=== PATIENT | female | born 1980 | race Caucasian/White ===

== ENCOUNTER 2020-10-25 06:20 | Emergency (ER) | payer SELFPAY ==
--- NOTE | 2020-10-25 06:25 | XR_ITS ---
WS: [id number] Left shoulder, 2 views, 10/25/2020 Clinical Data: L shoulder pain Comparison: None. Findings: No fractures or dislocations are seen. The AC joint is normal. The adjacent left clavicle, left scapu la and ribs are normal. The soft tissues are unremarkable. XR/XR shoulder LT min 2V* [id number] Impression: Negative left shoulder.
[2020-10-25 06:26] VITALS: BP 167/92; PULSE 82; RESP 24; TEMP 36.7; O2SAT 98; BMI 36.6
--- NOTE | 2020-10-25 06:36 | CTR_ITS ---
PROCEDURE INFORMATION: Exam: CT Cervical Spine Without Contrast Exam date and time: 10/25/2020 6:42 AM Age: 40 years old Clinical indication: Neck pain; Additional info: Pain/l arm radiculopathy TECHNIQUE: Imaging protocol: Computed tomography images of the cervical spine without contrast. Radiation optimization: All CT scans at this facility use at least one of these dose optimization techniques: automated exposure control; mA and/or kV adjustment per patient size (includes targeted exams where dose is matched to clinical indication); or iterative reconstruction. COMPARISON: No relevant prior studies available. RADIATION DOSE METRICS: Total DLP (mGy-cm): 869.01 FINDINGS: Bones/joints: On axial CT images, no definite acute fracture is visible. Sagittal and coronal reconstructions show no acute fracture or subluxation. Mild degenerative disc changes and facet joint arthritis at several levels. The most prominent disc space narrowing is seen at C6-C7. Discs/Spinal canal/Neural foramina: No definite/significant disc herniation by CT, MRI could be more sensitive if clinically indicated. Thyroid: Small nodule or cyst is suspected in the upper lobe of both lobes of the thyroid gland, measuring up to 8 mm on the left, and 6 mm right. Lungs: No significant acute finding in the upper lungs. CT/CT cervical spin wo con* [id number] IMPRESSION: 1. No definite acute fracture or subluxation by CT. 2. Small thyroid nodules or cysts, see above. 3. Other findings discussed above. COMMENTS: Consistent with the [employer]'s Incidental Findings Committee white paper (J Am Marie Radiol 2015): In patients aged 35 years and older with an incidental thyroid nodule equal to or greater than 1.[address], MRI or extrathyroidal US, further evaluation with dedicated thyroid US is recommended for patients with normal life expectancy and without comorbidities. For smaller nodules without suspicious features, no further evaluation or follow up is recommended. Radiation Dose CTDIVOL = (mGy): DLP = 869.01 (mGy-cm)
--- NOTE | 2020-10-25 06:39 | W.ED.EXTPRO ---
HPI - Extremity Problem General: Chief complaint: Extremity Problem,Nontraumatic Stated complaint: L SHOULDER PAIN Time Seen by Provider: 10/25/20 06:25 History of Present Illness: HPI Narrative: 40-year-old female presents emergency room complaining of left shoulder pain. She denies any trauma she has been going on for a month she has had 2 ER visits in [facility] is a second visit she received an injection she indicates in the area of the rhomboid muscle. She describes the pain is radiating to her shoulder all the way down into her hand. It is difficult to sleep at night. She denies any previous history of neck or shoulder trauma. MD Complaint: extremity pain Onset (ago): month(s) (1) Pain Consistency: intermittent Location: left and upper extremity Quality: sharp Radiation: distal Relieving factors: immobilization Exacerbating factors: other (Movement) Associated symptoms: Deny arthralgias, chest pain, fever(s), myalgias, rash or short of breath Review of Systems Const: Denies: fever(s) ENMT: Denies: throat pain, ear or mastoid pain, nasal discharge or nasal congestion Card: Denies: chest pain Resp: Denies: dyspnea, productive cough or non-productive cough GI: Denies: abdominal pain, nausea, vomiting, coffee ground emesis, diarrhea, constipation or bloating : Denies: flank pain, difficulty voiding, dysuria, urinary frequency or urinary urgency [facility] Female Reproductive History: Date of last menstrual period: 10/06/20 Physical Exam Const: COMMON NORMALS: no acute distress GENERAL APPEARANCE: cooperative and comfortable ORIENTATION/CONSCIOUSNESS: Yes awake, Yes oriented to person, Yes oriented to place and Yes oriented to time HENMT: COMMON NORMALS: normocephalic, atraumatic and hearing grossly normal bilaterally HEAD & SCALP: normocephalic and atraumatic Neck/C-Spine: COMMON NORMALS: no JVD Resp: COMMON NORMALS: normal respiratory effort, No retractions, No use of accessory muscles and clear to auscultation bilaterally AUSCULTATION: clear to auscultation bilaterally Cardio: COMMON NORMALS: no JVD, regular rate, regular rhythm and No murmurs present (Cardio) RATE: regular rate RHYTHM: regular rhythm GI: COMMON NORMALS: Soft to palpation and No hepatosplenomegaly present AUSCULTATION: Yes normoactive bowel sounds PALPATION: Yes Soft to palpation, No Tenderness to palpation present (GI), No Guarding due to palpation present (GI) and Yes No hepatosplenomegaly present Extremity: NARRATIVE EXTREMITY EXAM: Peripheral pulses at radial and ulnar on the left are normal. Sensation to sharp touch normal research associate strength equal range of motion of the shoulder elbow and wrist are all normal. Patient has no impingement sign no pain with palpation over the biceps tendon and bicipital groove. Neuro: SENSORIUM/ORIENTATION: Yes oriented to person, Yes oriented to place and Yes oriented to time Skin: COMMON NORMALS: no rashes or lesions noted GENERAL SKIN EXAM: no rashes or lesions noted Course Vital Signs: Vital signs: Vital Signs Temperature 98.1 F 10/25/20 06:26 Pulse Rate 61 10/25/20 07:46 Respiratory Rate 20 H 10/25/20 07:46 Blood Pressure 141/83 10/25/20 07:46 Pulse Oximetry 99 10/25/20 07:46 MDM - Extremity (Nontraumatic) MDM Narrative: Medical decision making narrative: Reviewed CT with the patient. I suspect she is going to need more advanced imaging. She does not have a PCP will try to get her set up with 1 to our case management. Medications as given below. Recommend she limit lifting less than 10 pounds not work above the level of her shoulder. Discharge Plan Discharge Patient Disposition: Home Clinical Impression: Cervical radiculopathy Condition: Stable Prescriptions: New hydrocodone-acetaminophen 5-325 mg tablet 1 tab PO Q6H PRN (Reason: pain) Qty: 10 RF: 0 diclofenac sodium 75 mg tablet,delayed release (DR/EC) 75 mg PO Q12H PRN (Reason: pain) Qty: 20 RF: 0 Medrol (Joseph) 4 mg tablets,dose pack See Rx Instructions .ROUTE .COMPLEX Qty: 21 RF: 0 Discharge Orders: Discharge ED (Routine); Ordered 10/25/20 Ordered By: Arya Stuart Patient Instructions: Opioid Safety Activity Restrictions/Additional Instructions: Discharge home follow-up with her primary caregiver may require more advanced imaging. Medications as above no lifting greater than 10 pounds do not work above level of the shoulders. Coding Level of Care Code ED Vehicle Inspector for Chg Fwd Exam Detailed
[2020-10-25 07:09] VITALS: RESP 20
[2020-10-25] MEDS: morphine 4 mg/mL SDV 1 mL IVP (07:09)
[2020-10-25] MEDS: orphenadrine 30 mg/mL Inj 2 mL 60 MG IVP (07:09)
[2020-10-25] MEDS: dexamethasone 10 mg/mL INJ IVP (07:10)
[2020-10-25 07:14] VITALS: BP 153/99; PULSE 66; RESP 20; O2SAT 99
[2020-10-25 07:46] VITALS: BP 141/83; PULSE 61; RESP 20; O2SAT 99
== END 2020-10-25 07:45 | disposition home or self-care (01) ==
PROVIDERS: Emergency Provider Family Medicine
DX: M54.12 Radiculopathy, cervical region (principal)
CPT/HCPCS: 72125; 73030; 96374; 96375; 99283; J1100; J2270; J2360

== ENCOUNTER 2020-10-27 06:07 | Emergency (ER) | payer SELFPAY ==
[2020-10-27 06:11] VITALS: BP 173/119; PULSE 81; RESP 24; TEMP 36.8; O2SAT 98; BMI 39.9
[2020-10-27] MEDS: haloperidol inj 5 mg/mL INJ 1 mL IM (06:19)
[2020-10-27] MEDS: diphenhydrAMINE 50 mg/mL SDV 1mL IVP (06:21)
--- NOTE | 2020-10-27 06:23 | W.ED.NECK ---
HPI - Neck Pain/Injury General: Chief Complaint: Neck Pain/Injury Stated Complaint: NECK AND SHOULDER PAIN Time Seen by Provider: 10/27/20 06:11 Source: patient and EMS Mode of arrival: EMS Limitations: no limitations History of Present Illness: HPI Narrative: 40-year-old female states she been having severe neck pain over the last 3 to 4 weeks. Patient was seen here 3 days ago and had a CT scan that showed no acute findings. She been taking hydrocodone states her pain got much worse this morning. States it is worse with movement or palpation. It starts in her neck and radiates down her left arm. MD complaint: neck pain Associated symptoms: Denies headache(s) or nausea Review of Systems Const: Denies: fever(s), chills, body aches or change in appetite Eyes: Denies: blurry vision or eye discomfort ENMT: Denies: throat pain or dental pain Card: Denies: chest pain Resp: Denies: dyspnea GI: Denies: abdominal pain, nausea, vomiting or diarrhea : Denies: dysuria Musc: Reports: neck pain Skin/Breast: Denies: rash Neuro: Denies: headache(s) Psych: Denies: depression Nitin/Lymph: Denies: easy bruising All/Imm: Denies: urticaria COUNTS INCLUDE 234 BEDS AT THE [facility] ED Female Reproductive History: Date of last menstrual period: 10/06/20 Physical Exam Const: COMMON NORMALS: no acute distress, patient oriented x3 and healthy appearing HENMT: COMMON NORMALS: normocephalic and atraumatic HEAD & SCALP: normocephalic and atraumatic Eye: COMMON NORMALS: Equal, round and reactive pupils present and EOMs intact bilaterally PUPIL: Yes Equal, round and reactive pupils present Neck/C-Spine: COMMON NORMALS: full ROM and supple OTHER: Tenderness over left neck and slight midline tenderness. Patient has sensation and pulses intact to bilateral upper extremities. Chest: COMMONS NORMALS: normal inspection of the chest and normal palpation of entire chest wall Resp: COMMON NORMALS: normal respiratory effort, No retractions, No use of accessory muscles and clear to auscultation bilaterally AUSCULTATION: clear to auscultation bilaterally Cardio: COMMON NORMALS: regular rate, regular rhythm and No murmurs present (Cardio) RATE: regular rate RHYTHM: regular rhythm GI: COMMON NORMALS: Normal to inspection, nondistended, normoactive bowel sounds present, Soft to palpation, non-tender and no masses PALPATION: Yes Soft to palpation Extremity: COMMON NORMALS: normal to inspection and full ROM Neuro: COMMON NORMALS: patient oriented x3, moves all extremities and no focal motor deficits Psych: COMMON NORMALS: mental status grossly normal, Normal thought process present and cooperative THOUGHT PROCESS: Normal thought process present Skin: COMMON NORMALS: no rashes or lesions noted and no wounds GENERAL SKIN EXAM: no rashes or lesions noted Course Vital Signs: Vital signs: Vital Signs Temperature 97.8 F 10/27/20 06:56 Pulse Rate 54 L 10/27/20 08:15 Respiratory Rate 18 10/27/20 08:15 Blood Pressure 125/78 10/27/20 08:15 Pulse Oximetry 100 10/27/20 08:15 MDM - Neck Pain/Injury MDM Narrative: Medical decision making narrative: Maggie presents with neck pain is likely radicular in nature. She is to continue the gabapentin. She has no signs of any acute cord compression no signs of epidural abscess. We will get her follow-up with spine surgery and she is return if worsening. Lab Data: Labs: Lab Results 10/27/20 10/27/20 10/27/20 Range/Units 06:24 06:24 06:24 WBC 13.2 H (4.0-10.0) 10^3/ uL RBC 4.66 (4.1-5.3) 10^6/u L Hgb 12.2 (11.5-15.3) g/dL Hct 39.7 (37.0-47.0) % MCV 85.2 (81-99) fL MCH 26.2 L (28.0-34.0) pg MCHC 30.7 (30.0-36.0) g/dL RDW 16.2 H (12.1-15.1) % Plt Count 323 (130-400) 10^3/c mm MPV 10.9 H (7.4-10.4) fL Neut % (Auto) 71.0 % Lymph % (Auto) 19.3 % Crenshaw % (Auto) 6.8 % Eos % (Auto) 1.6 % Baso % (Auto) 0.9 % Neut # (Auto) 9.35 H (1.8-7.7) 10^3/u L Lymph # (Auto) 2.5 (0.8-4.8) 10^3/u L Crenshaw # (Auto) 0.9 (0.2-0.9) 10^3/u L Eos # (Auto) 0.2 (0.0-0.8) 10^3/u L Baso # (Auto) 0.1 (0.0-0.1) 10^3/u L Nucleated RBC % (a uto) 0 % Nucleated RBCs # 0.0 /100WBC Sodium 141 (136-145) mmol/L Potassium 4.0 (3.5-5.1) mmol/L Chloride 109 H (98-107) mmol/L Carbon Dioxide 21 L (22-29) mmol/L Anion Gap 15.0 (5-19) BUN 18 (6-20) mg/dL Creatinine 0.6 (0.5-0.9) mg/dL GFR Calculation 111.9 (90-130) mL/min Glucose 111 (65-115) mg/dL Calculated Osmolal ity 295 (285-295) mOsm/k g Calcium 8.3 L (8.5-10.5) mg/dL C-Reactive Protein 2.2 (0.0-4.9) mg/L Discharge Plan Discharge Patient Disposition: Home Clinical Impression: Cervical radiculopathy Condition: Stable Prescriptions: New Percocet 5-325 mg tablet 1 tab PO Q8H PRN (Reason: pain) Qty: 14 RF: 0 Robaxin-750 750 mg tablet 750 mg PO Q6H Qty: 30 RF: 0 No Action hydrocodone-acetaminophen 5-325 mg tablet 1 tab PO Q6H PRN (Reason: pain) Qty: 10 RF: 0 diclofenac sodium 75 mg tablet,delayed release (DR/EC) 75 mg PO Q12H PRN (Reason: pain) Qty: 20 RF: 0 Medrol (Joseph) 4 mg tablets,dose pack See Rx Instructions .ROUTE .COMPLEX Qty: 21 RF: 0 Discharge Orders: Discharge ED (Routine); Ordered 10/27/20 Ordered By: Narciso Elizabeth Referrals: Js Tillman DO [Physician] - 1-3 days Discharge Diet: Advance as tolerated Discharge Activity: Resume usual activity Patient Instructions: Cervical Radiculopathy (ED) Coding Level of Care Code ED Quality Assurance Supervisor for Chg Fwd Exam Comprehensive
[2020-10-27 06:27] VITALS: BP 122/86; PULSE 68; RESP 18; O2SAT 98
[2020-10-27 06:30] LABS: Basophils # 0.1 10^3/uL (0.0-0.1); Basophils % 0.9 %; Eosinophils # 0.2 10^3/uL (0.0-0.8); Eosinophils % 1.6 %; Hematocrit 39.7 % (37.0-47.0); Hemoglobin 12.2 g/dL (11.5-15.3); Lymphocytes # 2.5 10^3/uL (0.8-4.8); Lymphocytes % 19.3 %; Mean Corpuscular HGB Conc 30.7 g/dL (30.0-36.0); Mean Corpuscular Hemoglobin 26.2 pg (28.0-34.0); Mean Corpuscular Volume 85.2 fL (81-99); Mean Platelet Volume 10.9 fL (7.4-10.4); Monocytes # 0.9 10^3/uL (0.2-0.9); Monocytes % 6.8 %; Neutrophils # 9.35 10^3/uL (1.8-7.7); Nucleated Red Blood Cells % 0 %; Platelet Count 323 10^3/cmm (130-400); Red Blood Count 4.66 10^6/uL (4.1-5.3); Red Cell Distribution Width 16.2 % (12.1-15.1); White Blood Count 13.2 10^3/uL (4.0-10.0)
[2020-10-27 06:53] LABS: Blood Urea Nitrogen 18 mg/dL (6-20); Calcium 8.3 mg/dL (8.5-10.5); Carbon Dioxide 21 mmol/L (22-29); Chloride 109 mmol/L (98-107); Creatinine Clr Calc Pharmacy 156.0295; Glomerular Filtration Rate 111.9 mL/min (90-130); Glucose 111 mg/dL (65-115); Osmolality Calculated 295 mOsm/kg (285-295); Sodium 141 mmol/L (136-145)
[2020-10-27 06:54] LABS: C Reactive Protein 2.2 mg/L (0.0-4.9)
[2020-10-27 06:56] VITALS: BP 145/91; PULSE 78; RESP 18; TEMP 36.6; O2SAT 99
--- NOTE | 2020-10-27 06:57 | PC.NURSE ---
Received report assumed care. Pt laying on right side, restless in bed. C/O of left shoulder, down left arm and neck pain. States the combination of Fentanyl, Benadryl and Haldo eased the pain. Pt seen recently for the same problem. Does not have a PCP. Informed Dr Elizabeth.
--- NOTE | 2020-10-27 07:20 | PC.NURSE ---
Pt gowned , all garments and belongs removed. Sitter in doorway.
[2020-10-27 08:15] VITALS: BP 125/78; PULSE 54; RESP 18; O2SAT 100
--- NOTE | 2020-10-28 08:58 | DCPLANNER ---
liquor establishment manager had message to schedule a follow up appointment for patient with ortho. liquor establishment manager called the ortho clinic, spoke with Yakelin, gave clinic patients information. liquor establishment manager was told that patients information would be printed and reviewed. Clinic will call patient with appointment information.
--- NOTE | 2020-10-29 07:51 | DCPLANNER ---
Patient has a follow up appointment scheduled for October at 3:[address] Tillman at [facility]. Clinic will call patient with appointment information.
--- NOTE | 2020-11-13 15:02 | DCPLANNER ---
Patient had a follow up appointment scheduled for 10.24.[address] Tillman at [facility] - patient did attend appointment.
== END 2020-10-27 08:15 | disposition home or self-care (01) ==
PROVIDERS: Emergency Provider Emergency Medicine
DX: M54.12 Radiculopathy, cervical region (principal)
CPT/HCPCS: 80048; 85025; 86140; 96372; 96374; 99283; J1200; J1630

== ENCOUNTER 2020-10-31 02:22 | Emergency (ER) | payer SELFPAY ==
[2020-10-31 02:25] VITALS: BP 142/94; PULSE 81; RESP 17; TEMP 36.6; O2SAT 99; BMI 39.9
[2020-10-31 02:29] VITALS: BP 142/94; PULSE 74; RESP 20; O2SAT 99
--- NOTE | 2020-10-31 02:29 | MRR_ITS ---
PROCEDURE INFORMATION: Exam: MR Cervical Spine Without Contrast Exam date and time: 10/31/2020 3:00 AM Age: 40 years old Clinical indication: Neck pain TECHNIQUE: Imaging protocol: Multiplanar magnetic resonance images of the cervical spine without contrast. COMPARISON: No relevant prior studies available. FINDINGS: Vertebrae: There is normal vertebral body alignment. There are normal vertebral body heights. Spinal cord: Cervical cord signal is normal. C1-C2: Craniocervical articulation is normal. C2-C3: There is mild disc space narrowing at C2-C3. C3-C4: No significant disc disease. No significant spinal stenosis. C4-C5: Mild disc space narrowing at C4-C5. Small broad-based disc protrusion at C4-C5 resulting in mild-moderate canal stenosis. No foraminal stenosis. C5-C6: Mild disc space narrowing at C5-C6. C6-C7: Moderate disc space narrowing at C6-C7. Disc extrusion at C6-C7 resulting in moderate to severe canal stenosis. Mild left neural foraminal stenosis. C7-T1: No significant disc disease. No significant spinal stenosis. Soft tissues: Atlantodental interval and prevertebral soft tissues are normal. Vertebral arteries: Expected flow voids in the vertebral arteries. Other findings: Visualized portions of the brain are normal. MR/MR cervical spin wo con* [id number] IMPRESSION: Mild-moderate multilevel degenerative disc and joint disease which is most pronounced at C6-C7 with a large disc extrusion resulting in moderate to severe canal stenosis and mild left neural foraminal narrowing.
--- NOTE | 2020-10-31 02:29 | MRR_ITS ---
PROCEDURE INFORMATION: Exam: MR Lumbar Spine Without Contrast Exam date and time: 10/31/2020 3:00 AM Age: 40 years old Clinical indication: Low back pain TECHNIQUE: Imaging protocol: Multiplanar magnetic resonance images of the lumbar spine without intravenous contrast. COMPARISON: No relevant prior studies available. FINDINGS: Vertebrae: There are 5 lumbar type vertebral bodies. There is normal vertebral body alignment. There are normal vertebral body heights. Spinal cord: Conus medullaris terminates at L1. L1-L2: No significant disc disease. No significant spinal canal stenosis. No neural foraminal stenosis. L2-L3: No significant disc disease. No significant spinal canal stenosis. No neural foraminal stenosis. L3-L4: Small broad-based disc protrusion at L3-L4 results in mild canal stenosis when combined with facet joint hypertrophy. There is mild left neural foraminal stenosis at L3-L4. L4-L5: At L4-L5 there is mild canal stenosis secondary to broad-based disc protrusion and facet hypertrophy. There is mild bilateral foraminal stenosis at L4-L5. L5-S1: No significant disc disease. No significant spinal canal stenosis. No neural foraminal stenosis. Other bones/joints: There is normal bone marrow signal. No fracture. Soft tissues: The paravertebral soft tissues are normal. MR/MR lumbar spine wo con* [id number] IMPRESSION: Mild degenerative disc and joint disease. No fracture.
--- NOTE | 2020-10-31 02:29 | MRR_ITS ---
PROCEDURE INFORMATION: Exam: MR Thoracic Spine Without Contrast Exam date and time: 10/31/2020 3:47 AM Age: 40 years old Clinical indication: Pain in thoracic spine TECHNIQUE: Imaging protocol: Multiplanar magnetic resonance images of the thoracic spine without intravenous contrast. COMPARISON: No relevant prior studies available. FINDINGS: Vertebrae: There is normal vertebral body alignment. There are normal vertebral body heights. Spinal cord: Thoracic spinal cord signal is normal. C6-C7: Focal disc protrusion at C6-C7 results in mild-moderate canal stenosis. T1-T2: No significant disc disease. No significant spinal canal stenosis. T2-T3: No significant disc disease. No significant spinal canal stenosis. T3-T4: No significant disc disease. No significant spinal canal stenosis. T4-T5: No significant disc disease. No significant spinal canal stenosis. T5-T6: No significant disc disease. No significant spinal canal stenosis. T6-T7: No significant disc disease. No significant spinal canal stenosis. T7-T8: No significant disc disease. No significant spinal canal stenosis. T8-T9: No significant disc disease. No significant spinal canal stenosis. T9-T10: No significant disc disease. No significant spinal canal stenosis. T10-T11: No significant disc disease. No significant spinal canal stenosis. T11-T12: Tiny broad-based disc protrusion at T11-12 without canal stenosis. Other bones/joints: Bone marrow signal is normal. No fracture. Soft tissues: Paravertebral soft tissues are normal. Other findings: Minimal disc space narrowing is present throughout the thoracic spine. No foraminal stenosis. MR/MR thoracic spin wo con* [id number] IMPRESSION: 1. Focal disc protrusion at C6-C7 results in mild-moderate canal stenosis. 2. Minimal disc space narrowing in the thoracic spine. 3. Tiny broad-based disc protrusion at T11-12 without canal stenosis.
--- NOTE | 2020-10-31 02:33 | W.ED.NECK ---
HPI - Neck Pain/Injury General: Chief Complaint: Neck Pain/Injury Stated Complaint: neck pain, should pain and ll leg pain Time Seen by Provider: 10/31/20 02:24 Source: patient and EMS Mode of arrival: EMS Limitations: no limitations History of Present Illness: HPI Narrative: 40-year-old female has been having severe neck pain over the last 2 to 3 weeks. She states it has got much worse tonight and radiates down her left arm. She also states she is now having low back pain and some urinary incontinence. States pain is a 10 out of 10 is been taking Percocet with little relief. Denies any vomiting or diarrhea. Denies any fevers. No known IV drug use. Associated symptoms: Denies headache(s) or nausea Review of Systems Const: Denies: fever(s), chills, body aches or change in appetite Eyes: Denies: blurry vision or eye discomfort ENMT: Denies: throat pain or dental pain Card: Denies: chest pain Resp: Denies: dyspnea GI: Denies: abdominal pain, nausea, vomiting or diarrhea : Denies: dysuria Musc: Reports: neck pain and back pain Skin/Breast: Denies: rash Neuro: Denies: headache(s) Psych: Denies: depression Nitin/Lymph: Denies: easy bruising All/Imm: Denies: urticaria [facility] Female Reproductive History: Date of last menstrual period: 10/06/20 Physical Exam Const: COMMON NORMALS: no acute distress, patient oriented x3 and healthy appearing HENMT: COMMON NORMALS: normocephalic and atraumatic HEAD & SCALP: normocephalic and atraumatic Eye: COMMON NORMALS: Equal, round and reactive pupils present and EOMs intact bilaterally PUPIL: Yes Equal, round and reactive pupils present Neck/C-Spine: COMMON NORMALS: full ROM and supple Chest: COMMONS NORMALS: normal inspection of the chest and normal palpation of entire chest wall Resp: COMMON NORMALS: normal respiratory effort, No retractions, No use of accessory muscles and clear to auscultation bilaterally AUSCULTATION: clear to auscultation bilaterally Cardio: COMMON NORMALS: regular rate, regular rhythm and No murmurs present (Cardio) RATE: regular rate RHYTHM: regular rhythm GI: COMMON NORMALS: Normal to inspection, nondistended, normoactive bowel sounds present, Soft to palpation, non-tender and no masses PALPATION: Yes Soft to palpation Back/Pelvis: OTHER: Tenderness along spine 5 out of 5 strength bilateral lower extremities sensations intact Extremity: COMMON NORMALS: normal to inspection and full ROM Neuro: COMMON NORMALS: patient oriented x3, moves all extremities and no focal motor deficits Psych: COMMON NORMALS: mental status grossly normal, Normal thought process present and cooperative THOUGHT PROCESS: Normal thought process present Skin: COMMON NORMALS: no rashes or lesions noted and no wounds GENERAL SKIN EXAM: no rashes or lesions noted Course Vital Signs: Vital signs: Vital Signs Temperature 97.8 F 10/31/20 02:25 Pulse Rate 63 10/31/20 05:04 Respiratory Rate 18 10/31/20 03:01 Blood Pressure 104/88 10/31/20 05:04 Pulse Oximetry 98 10/31/20 05:04 MDM - Neck Pain/Injury MDM Narrative: Medical decision making narrative: Patient presents with neck pain since MRI did show severe cervical stenosis and a disc extrusion. I spoke to Dr. Tillman and patient has an appointment with him today at 115. We will give her pain meds and she is to follow-up with him today as scheduled. She does not require acute surgery. Patient stable for discharge. Lab Data: Labs: Lab Results 10/31/20 10/31/20 Range/Units 02:55 02:55 WBC 14.2 H (4.0-10.0) 10^3/ uL RBC 4.85 (4.1-5.3) 10^6/u L Hgb 12.9 (11.5-15.3) g/dL Hct 41.5 (37.0-47.0) % MCV 85.6 (81-99) fL MCH 26.6 L (28.0-34.0) pg MCHC 31.1 (30.0-36.0) g/dL RDW 16.0 H (12.1-15.1) % Plt Count 343 (130-400) 10^3/c mm MPV 10.6 H (7.4-10.4) fL Neut % (Auto) 79.7 % Lymph % (Auto) 11.4 % Motley % (Auto) 4.9 % Eos % (Auto) 3.1 % Baso % (Auto) 0.6 % Neut # (Auto) 11.29 H (1.8-7.7) 10^3/u L Lymph # (Auto) 1.6 (0.8-4.8) 10^3/u L Motley # (Auto) 0.7 (0.2-0.9) 10^3/u L Eos # (Auto) 0.4 (0.0-0.8) 10^3/u L Baso # (Auto) 0.1 (0.0-0.1) 10^3/u L Nucleated RBC % (a uto) 0 % Nucleated RBCs # 0.0 /100WBC Sodium 138 (136-145) mmol/L Potassium 3.6 (3.5-5.1) mmol/L Chloride 106 (98-107) mmol/L Carbon Dioxide 20 L (22-29) mmol/L Anion Gap 15.6 (5-19) BUN 12 (6-20) mg/dL Creatinine 0.6 (0.5-0.9) mg/dL GFR Calculation 111.9 (90-130) mL/min Glucose 152 H (65-115) mg/dL Calculated Osmolal ity 289 (285-295) mOsm/k g Calcium 9.2 (8.5-10.5) mg/dL Total Bilirubin 0.3 (0.15-1.2) mg/dL AST 21 (0-32) U/L ALT 31 (0-33) U/L Alkaline Phosphata se 73 (35-105) IU/L Total Protein 7.2 (6.6-8.7) g/dL Albumin 4.1 (3.5-5.2) g/dL Globulin 3.1 (1.3-4.6) g/dL Imaging Data^: mr c spine: Radiologist's impression: [facility] [address] [place] [address] Magnetic Resonance Report Signed Patient: Mable Carter Unit #: [id number] : 1980 Age/Sex: 40 / F ADM Date: 10/31/20 Loc: ER Room/Bed: Attending Dr: Ordering Provider/Ordering MD: Narciso Elizabeth MD Date of Service: 10/31/20 Procedure(s): MR cervical spin wo con* [id number] Accession Number(s): [id number] Report Number: [id number] PROCEDURE INFORMATION: Exam: MR Cervical Spine Without Contrast Exam date and time: 10/31/2020 3:00 AM Age: 40 years old Clinical indication: Neck pain TECHNIQUE: Imaging protocol: Multiplanar magnetic resonance images of the cervical spine without contrast. COMPARISON: No relevant prior studies available. FINDINGS: Vertebrae: There is normal vertebral body alignment. There are normal vertebral body heights. Spinal cord: Cervical cord signal is normal. C1-C2: Craniocervical articulation is normal. C2-C3: There is mild disc space narrowing at C2-C3. C3-C4: No significant disc disease. No significant spinal stenosis. C4-C5: Mild disc space narrowing at C4-C5. Small broad-based disc protrusion at C4-C5 resulting in mild-moderate canal stenosis. No foraminal stenosis. C5-C6: Mild disc space narrowing at C5-C6. C6-C7: Moderate disc space narrowing at C6-C7. Disc extrusion at C6-C7 resulting in moderate to severe canal stenosis. Mild left neural foraminal stenosis. C7-T1: No significant disc disease. No significant spinal stenosis. Soft tissues: Atlantodental interval and prevertebral soft tissues are normal. Vertebral arteries: Expected flow voids in the vertebral arteries. Other findings: Visualized portions of the brain are normal. MR/MR cervical spin wo con* [id number] IMPRESSION: Mild-moderate multilevel degenerative disc and joint disease which is most pronounced at C6-C7 with a large disc extrusion resulting in moderate to severe canal stenosis and mild left neural foraminal narrowing. mr t spine: Radiologist's impression: [address] [address] Magnetic Resonance Report Signed Patient: Mable Carter Unit #: [id number] : 1980 Age/Sex: 40 / F ADM Date: 10/31/20 Loc: ER Room/Bed: Attending Dr: Ordering Provider/Ordering MD: Narciso Elizabeth MD Date of Service: 10/31/20 Procedure(s): MR thoracic spin wo con* [id number] Accession Number(s): [id number] Report Number: [id number] PROCEDURE INFORMATION: Exam: MR Thoracic Spine Without Contrast Exam date and time: 10/31/2020 3:47 AM Age: 40 years old Clinical indication: Pain in thoracic spine TECHNIQUE: Imaging protocol: Multiplanar magnetic resonance images of the thoracic spine without intravenous contrast. COMPARISON: No relevant prior studies available. FINDINGS: Vertebrae: There is normal vertebral body alignment. There are normal vertebral body heights. Spinal cord: Thoracic spinal cord signal is normal. C6-C7: Focal disc protrusion at C6-C7 results in mild-moderate canal stenosis. T1-T2: No significant disc disease. No significant spinal canal stenosis. T2-T3: No significant disc disease. No significant spinal canal stenosis. T3-T4: No significant disc disease. No significant spinal canal stenosis. T4-T5: No significant disc disease. No significant spinal canal stenosis. T5-T6: No significant disc disease. No significant spinal canal stenosis. T6-T7: No significant disc disease. No significant spinal canal stenosis. T7-T8: No significant disc disease. No significant spinal canal stenosis. T8-T9: No significant disc disease. No significant spinal canal stenosis. T9-T10: No significant disc disease. No significant spinal canal stenosis. T10-T11: No significant disc disease. No significant spinal canal stenosis. T11-T12: Tiny broad-based disc protrusion at T11-12 without canal stenosis. Other bones/joints: Bone marrow signal is normal. No fracture. Soft tissues: Paravertebral soft tissues are normal. Other findings: Minimal disc space narrowing is present throughout the thoracic spine. No foraminal stenosis. MR/MR thoracic spin wo con* [id number] IMPRESSION: 1. Focal disc protrusion at C6-C7 results in mild-moderate canal stenosis. 2. Minimal disc space narrowing in the thoracic spine. 3. Tiny broad-based disc protrusion at T11-12 without canal stenosis. MRI: Attestation: I personally reviewed and interpreted this imaging study as follows: Radiologist's impression: [facility] [address] Magnetic Resonance Report Signed Patient: Mable Carter Unit #: [id number] : 1980 Age/Sex: 40 / F ADM Date: 10/31/20 Loc: ER Room/Bed: Attending Dr: Ordering Provider/Ordering MD: Narciso Elizabeth MD Date of Service: 10/31/20 Procedure(s): MR lumbar spine wo con* [id number] Accession Number(s): [id number] Report Number: [id number] PROCEDURE INFORMATION: Exam: MR Lumbar Spine Without Contrast Exam date and time: 10/31/2020 3:00 AM Age: 40 years old Clinical indication: Low back pain TECHNIQUE: Imaging protocol: Multiplanar magnetic resonance images of the lumbar spine without intravenous contrast. COMPARISON: No relevant prior studies available. FINDINGS: Vertebrae: There are 5 lumbar type vertebral bodies. There is normal vertebral body alignment. There are normal vertebral body heights. Spinal cord: Conus medullaris terminates at L1. L1-L2: No significant disc disease. No significant spinal canal stenosis. No neural foraminal stenosis. L2-L3: No significant disc disease. No significant spinal canal stenosis. No neural foraminal stenosis. L3-L4: Small broad-based disc protrusion at L3-L4 results in mild canal stenosis when combined with facet joint hypertrophy. There is mild left neural foraminal stenosis at L3-L4. L4-L5: At L4-L5 there is mild canal stenosis secondary to broad-based disc protrusion and facet hypertrophy. There is mild bilateral foraminal stenosis at L4-L5. L5-S1: No significant disc disease. No significant spinal canal stenosis. No neural foraminal stenosis. Other bones/joints: There is normal bone marrow signal. No fracture. Soft tissues: The paravertebral soft tissues are normal. MR/MR lumbar spine wo con* [id number] IMPRESSION: Mild degenerative disc and joint disease. No fracture. EKG Data^: EKG 1: Attestation: I personally reviewed and interpreted this EKG as follows: EKG interpretation date: 10/31/20 EKG interpretation time: 02:52 Interpretation: nsr hr [address] or t wave abnormalities qrs 96 qtc 409 Discharge Plan Discharge Patient Disposition: Home Clinical Impression: Cervical radiculopathy Condition: Stable Prescriptions: No Action Percocet 5-325 mg tablet 1 tab PO Q8H PRN (Reason: pain) Qty: 14 RF: 0 Robaxin-750 750 mg tablet 750 mg PO Q6H Qty: 30 RF: 0 hydrocodone-acetaminophen 5-325 mg tablet 1 tab PO Q6H PRN (Reason: pain) Qty: 10 RF: 0 diclofenac sodium 75 mg tablet,delayed release (DR/EC) 75 mg PO Q12H PRN (Reason: pain) Qty: 20 RF: 0 Medrol (Joseph) 4 mg tablets,dose pack See Rx Instructions .ROUTE .COMPLEX Qty: 21 RF: 0 Discharge Orders: Discharge ED (Routine); Ordered 10/31/20 Ordered By: Narciso Elizabeth Referrals: Js Tillman DO [Physician] - 1-3 days Discharge Diet: Advance as tolerated Discharge Activity: Resume usual activity Patient Instructions: Cervical Spinal Stenosis (ED), Degenerative Disc Disease (ED), Opioid Safety Coding Level of Care Code ED [employer] Process Technician for [employer] Fwd Exam Comprehensive
--- NOTE | 2020-10-31 02:36 | ECG_ITS ---
[facility] Test Date: 2020-10-31 Pat Name: Mable Carter Department: Room: Gender: Female Cryptologic Supervisor: : 1980 Requested By: Narciso Elizabeth Order Number: [id number] Nela MD: Gian Nieto M.D. Measurements Intervals Honor Rate: 73 P: 50 VA: 155 QRS: 12 QRSD: 96 T: 31 QT: 383 QTc: 423 Interpretive Statements SINUS RHYTHM No previous ECG available for comparison Electronically Signed On 10-31-2020 17:14:28 ANIMAL CONTROL LICENSING WORKER by Gian Nieto M.D. [email or web address]
[2020-10-31 03:00] LABS: Basophils # 0.1 10^3/uL (0.0-0.1); Basophils % 0.6 %; Eosinophils # 0.4 10^3/uL (0.0-0.8); Eosinophils % 3.1 %; Hematocrit 41.5 % (37.0-47.0); Hemoglobin 12.9 g/dL (11.5-15.3); Lymphocytes # 1.6 10^3/uL (0.8-4.8); Lymphocytes % 11.4 %; Mean Corpuscular HGB Conc 31.1 g/dL (30.0-36.0); Mean Corpuscular Hemoglobin 26.6 pg (28.0-34.0); Mean Corpuscular Volume 85.6 fL (81-99); Mean Platelet Volume 10.6 fL (7.4-10.4); Monocytes # 0.7 10^3/uL (0.2-0.9); Monocytes % 4.9 %; Neutrophils # 11.29 10^3/uL (1.8-7.7); Neutrophils % 79.7 %; Nucleated Red Blood Cells % 0 %; Platelet Count 343 10^3/cmm (130-400); Red Blood Count 4.85 10^6/uL (4.1-5.3); White Blood Count 14.2 10^3/uL (4.0-10.0)
[2020-10-31 03:01] VITALS: RESP 18; O2SAT 98
[2020-10-31] MEDS: HYDROmorphone 1 mg/mL INJ 1 mL IVP ×2 (03:01→05:56)
[2020-10-31] MEDS: LORazepam 2 mg/mL INJ 1 mL IVP (03:11)
[2020-10-31 03:24] LABS: Alanine Aminotransferase 31 U/L (0-33); Albumin Level 4.1 g/dL (3.5-5.2); Alkaline Phosphatase 73 IU/L (35-105); Anion Gap 15.6 (5-19); Aspartate Amino Transferase 21 U/L (0-32); Blood Urea Nitrogen 12 mg/dL (6-20); Calcium 9.2 mg/dL (8.5-10.5); Carbon Dioxide 20 mmol/L (22-29); Chloride 106 mmol/L (98-107); Creatinine Clr Calc Pharmacy 156.0295; Globulin 3.1 g/dL (1.3-4.6); Glomerular Filtration Rate 111.9 mL/min (90-130); Glucose 152 mg/dL (65-115); Osmolality Calculated 289 mOsm/kg (285-295); Potassium 3.6 mmol/L (3.5-5.1); Sodium 138 mmol/L (136-145); Total Bilirubin 0.3 mg/dL (0.15-1.2); Total Protein 7.2 g/dL (6.6-8.7)
--- NOTE | 2020-10-31 04:52 | PC.NURSE ---
Pt returned from MRI at this time.
[2020-10-31 05:04] VITALS: BP 104/88; PULSE 63; O2SAT 98
[2020-10-31 05:56] VITALS: RESP 16; O2SAT 98
[2020-10-31] MEDS: LORazepam 2 mg/mL INJ 1 mL 1 MG IVP (06:06)
[2020-10-31 06:19] VITALS: BP 126/96; PULSE 64; RESP 16; O2SAT 96
== END 2020-10-31 06:18 | disposition home or self-care (01) ==
PROVIDERS: Emergency Provider Emergency Medicine
DX: M54.12 Radiculopathy, cervical region (principal)
CPT/HCPCS: 72050; 72141; 72146; 72148; 80053; 85025; 87635; 93005; 96374; 96375; 96376; 99284; 99291; 99292; J1170; J2060

== ENCOUNTER 2020-11-01 10:09 | Day surgery (SDC) | payer SELFPAY ==
[2020-10-31 14:02] VITALS: BMI 40.2
--- NOTE | 2020-10-31 14:20 | ANES.PREANE2 ---
Pre-Anesthetic Assessment Pre-Anesthetic Assessment: Height/Weight: Height 1.65 m Weight 109.769 kg Proposed Procedure: Operation Date: 11/01/20 12:00 Proposed Procedures p Anterior Cervical Discectomy & Fusion acdf c6/7 M47.12(Not Applicable) - Js Tillman, DO Was Beta Aneudy taken within 24 hours: N/A Social: Social History: Tobacco and No alcohol Airway: Submandibular: WNL Cervical ROM: WNL MP: 2 Dentition: False Pulmonary: Pulmonary: Cough CV/HEM: CV/HEM: None reported : : None reported Hepatic: Hepatic: None reported GI: GI: None reported Metabolic: Metabolic: None reported Neuropsych: Neuropsych: None reported Anesthetic Plan: ASA status: 2 Anesthesia: General PFS Anesthesia Female Reproductive History: Date of last menstrual period: 10/06/20 Data Anesthesia Cardiac Studies: No Data to Display
[2020-10-31 14:31] LABS: OR HCG Qualitative Urine Negative (Negative)
[2020-11-01] VITALS (15 sets, daily range): BP systolic 113–149; BP diastolic 72–98; PULSE 58–93; RESP 16–20; TEMP 36.2–36.6; O2SAT 94–100
--- NOTE | 2020-11-01 | XR_ITS ---
WS: [id number] XR cervical spine 3V* [id number] REASON FOR EXAM: Anterior discectomy C6/7 FINDINGS: Inner 5 the fusion device placement and anterior plate and screw fixation bridging C6-C7. Cervical sp ine and surgical appliance alignment and position are appropriate. XR/XR cervical spine 3V* [id number] IMPRESSION: Anterior discectomy with fusion at C6-C7 as above.
--- NOTE | 2020-11-01 | SCC_ITS ---
Procedure Done: 1. Anterior discectomy C6/7 2. Insertion of Cage C6/7 3. Instrumentation with anterior plate from C6-C7 4. Use of allogra 5.4 seconds of fluoroscopic guidance, for a cumulative dose of 2.74 mGy, was provided to Dr. Tillman by the radiology department. C-arm images of the cervical spine were saved for the patient's permanent record. [facility]
[2020-11-01] MEDS: sodium chloride 0.9% 1,000 ML 30 ML IV (10:51)
[2020-11-01] MEDS: fentaNYL 50 mcg/mL INJ 2mL IVP ×2 (11:00→15:27)
--- NOTE | 2020-11-01 11:45 | P.ANESUD_ITS ---
Pre-Anesthetic Update Pre-Anesthetic Assessment: Date of Surgery/Procedure: 11/01/20 Preop Brisa gnosis: cervical spondylosis with myelopathy Proposed Procedure: Operation Date: 11/01/20 12:00 Proposed Procedures p Anterior Cervical Discectomy & Fusion acdf c6/7 M47.12 29856 [id number](Not Applicable) - Js Tillman, DO Any changes to Pre-Anesthetic Assessment?: No Last Intake: Intake Last Liquid Date 10/31/20 Last Liquid Time 22:00 Last Solid Date 10/31/20 Last Solid Time 17:00 Labs Last 48hrs: Laboratory Results - last 48 hr 10/31/20 14:23 Urine HCG, Qual Negative Vitals: Temperature 97.7 F 11/01/20 10:45 Temperature Source Temporal Artery S can 11/01/20 10:45 Pulse Rate 71 11/01/20 10:45 Respiratory Rate 18 11/01/20 11:00 Respiratory Effort 11/01/20 11:00 Respiratory Depth Normal 11/01/20 11:00 Respiratory Patter n 11/01/20 11:00 Blood Pressure 130/84 11/01/20 10:45 Blood Pressure Felicitas n 99 11/01/20 10:45 Pulse Oximetry 97 11/01/20 11:00 Oxygen Delivery Me thod 11/01/20 10:45 Exam: Pre-Anes Outpt Exam: alert, oriented x 3, clear to auscultation bilaterally and regular rate & rhythm Cardiac Studies: No Data to Display
[2020-11-01] MEDS: HYDROmorphone 1 mg/mL INJ 1 mL 0.5 MG IVP (11:58)
--- NOTE | 2020-11-01 12:14 | W.PM.OPSUD ---
Surgery/Procedure H&P Update DATE OF PROCEDURE: November 01, 2020 DATE H&P PERFORMED: 10/31/20 H&P UPDATE INFORMATION: I have reviewed H&P completed within last 30 days, I have examined patient prior to procedure and No changes to prior documentation PREOP DIAGNOSIS: cervical spondylosis with myelopathy PLANNED PROCEDURE: Operation Date: 11/01/20 12:00 Proposed Procedures p Anterior Cervical Discectomy & Fusion acdf c6/7 M47.12 [id number](Not Applicable) - Js Tillman DO
[2020-11-01] MEDS: thrombin 5,000 unit SDV 5000 UNIT (13:59)
[2020-11-01] MEDS: meperidine 50 mg/mL INJ 12.5 MG IVP (15:10)
[2020-11-01] MEDS: morphine 4 mg/mL SDV 1 mL 2 MG IVP (15:20)
--- NOTE | 2020-11-01 15:22 | ANE.PACU2 ---
Inpatient post-anesthesia follow up: Airway intact: Yes Vital signs: Temperature 97.7 F Pulse Rate 71 Respiratory Rate 18 Blood Pressure 130/84 Pulse Oximetry 100 Oxygen Delivery Me thod Room Air Oxygen Flow Rate Fraction of Inspir ed Oxygen Hydration adequate: Yes Nausea and vomiting: No Pain level: 3 Additional Comments: Sedated
--- NOTE | 2020-11-01 16:00 | PM.OP ---
Operative Report Date of procedure: November 01, 2020 Pre-op Diagnosis: cervical spondylosis with myelopathy Post-op diagnosis: same Procedure Done: 1. Anterior discectomy C6/7 2. Insertion of Cage C6/7 3. Instrumentation with anterior plate from C6-C7 4. Use of allograft Surgeon: Js Tillman Anesthesia: General Estimated blood loss (mL): 50 Condition: stable Disposition: PACU Procedure: The patient was taken to the operating room, where he underwent general endotracheal anesthesia without complications. He was then positioned supine on the operating table, and all areas of impingement were well padded. The arms were carefully padded and tucked at his sides. A roll was placed between the shoulder blades.. An x-ray was done to determine the appropriate level for the skin incision. The entire neck was then sterilely prepped and draped in the usual fashion. Neuromonitoring was attached prior to prepping. A transverse skin incision was made and carried down to the platysma muscle. This was then split in line with its fibers. Blunt dissection was carried down medial to the carotid sheath and lateral to the trachea and esophagus until the anterior cervical spine was visualized. A needle was placed into a disc and an x-ray was done to determine its location. The longus colli muscles were then elevated bilaterally with the electrocautery unit. Self-retaining retractors were placed deep to the longus colli muscle. Attention was brought to the C6-7 level that was confirmed on x-ray. The microscope was then brought in. A radical anterior discectomies were performed at C 6/ 7. This included complete removal of the anterior annulus, nucleus, and posterior annulus. The posterior longitudinal ligament was removed as were the posterior osteophytes. Foraminotomies were then accomplished bilaterally. This was done using a high speed zachary, kerrison rongeurs and curretes Once all of this was accomplished, the curved currette was used to check for any residual compression. The central canal was wide open as were the foramen. A high-speed bur was used to remove the cartilaginous endplates above and below the interspace. Bleeding cancellous bone was exposed. The disc space were measured and appropriate size cage were placed sterilely onto the field. Allograft graft was packed into the cages. The cage was then placed and there was good juxtaposition against the bleeding decorticated surfaces and good distraction of each interspace. The appropriate size anterior cervical locking plate was chosen and bent into gentle lordosis. Two screws were then placed into each of the vertebral bodies at C6 and C7. There was excellent purchase. A final x-ray was done confirming good position of the hardware and Cages. The locking screws were then applied, also with excellent purchase. Following a final copious irrigation, there was good hemostasis and no dural leaks. The carotid pulse was strong. The wounds were then closed in layers using 2-0 Vicryl suture for the platysma muscle, 2-0 Vicryl suture for the subcutaneous tissue, and 4-0 monocryl suture in a subcuticular skin closure. Glue was placed followed by application of a sterile dressing. The drain was hooked to bulb suction. A soft collar was applied. The patient was then carefully returned to the supine position on his hospital bed where he was reversed and extubated and taken to the recovery room having tolerated the procedure well.
== END 2020-11-01 17:00 | disposition home or self-care (01) ==
PROVIDERS: Anesthesiology; Visit Provider Orthopaedic Surgery
PROC: 0RB30ZZ Excision of Cervical Vertebral Disc, Open Approach (ICD-10-PCS; CPT 22551; principal; 2020-11-01 12:00)
DX: M47.892 Other spondylosis, cervical region (principal)
CPT/HCPCS: 20930; 22551; 22845; 22853; 72040; 76000; 84703; 96365; 96374; 96375; 97760; C1713; C9359; J0330; J0690; J1100; J1170; J2175; J2250; J2270; J2405; J2704; J3010; J3490; J7030; L0174

== ENCOUNTER → 2020-12-12 08:50 | Outpatient (BNVA) | payer SELFPAY | PROVIDERS: Visit Provider Orthopaedic Surgery | DX: M47.22 Other spondylosis with radiculopathy, cervical region (principal); Z01.818 Encounter for other preprocedural examination; Z98.890 Other specified postprocedural states; M47.12 Other spondylosis with myelopathy, cervical region | CPT/HCPCS: 72040 ==

== ENCOUNTER → 2021-02-18 10:11 | Outpatient (BNVA) | payer SELFPAY | PROVIDERS: Visit Provider Orthopaedic Surgery | DX: M47.22 Other spondylosis with radiculopathy, cervical region (principal); Z01.818 Encounter for other preprocedural examination; M47.12 Other spondylosis with myelopathy, cervical region; Z48.89 Encounter for other specified surgical aftercare | CPT/HCPCS: 72040 ==

== ENCOUNTER 2025-02-28 09:34 | Outpatient (CLI) | payer BC, MEDICAID, SELFPAY ==
--- NOTE | 2025-02-28 09:40 | MM_ITS ---
WS: [id number] BILATERAL 3D TOMOSYNTHESIS DIGITAL SCREENING MAMMOGRAPHY WITH CAD CLINICAL INFORMATION: SCREENING HISTORY: Screening mammogram. No current complaints. COMPARISON: Baseline TECHNIQUE: Bilateral CC and MLO views. FINDINGS: Scattered fibroglandular densities bilaterally. No suspicious focal mass, asymmetry, calcifications, or architectural distortion. No evidence of malignancy. Incidental punctate and lucent centered calcifications. MM/MM scr tomosynthesis [id number] IMPRESSION: DENSITY: There are scattered areas of fibroglandular density. BI-RADS: 2 - Benign. FOLLOW UP: 1 Year Follow-up Recommend return to annual screening mammography.
== END 2025-02-28 09:35 | disposition home or self-care (01) ==
LOC: RAD 09:36
PROVIDERS: Visit Provider Nurse Practitioner Family
DX: Z12.31 Encounter for screening mammogram for malignant neoplasm of breast (principal); R92.323 Mammographic fibroglandular density, bilateral breasts; R92.1 Mammographic calcification found on diagnostic imaging of breast
CPT/HCPCS: 77063; 77067